=== PATIENT | male | born 1975 | race Caucasian/White ===

== ENCOUNTER 2018-11-19 15:26 | Emergency (ER) | payer SELFPAY ==
[~2018-11-19] VITALS: Ht 175.3 cm; Wt 79.8 kg
[2018-11-19 15:26] VITALS: BP 127/79
[2018-11-19] MEDS ORDERED: METH4TAB2 PO (15:56)
[2018-11-19] MEDS ORDERED: SULF1TAB24 PO (15:56)
--- NOTE | 2018-11-19 15:56 | PHYS DOC ---
Adult General Chief Complaint Chief Complaint: SKIN PROBLEM HPI HPI Patient is a 43-year-old male who presents with complaint of left hand and wrist pain and swelling that he noticed this morning. Patient states that he is been working with his hands, aching trenches and has scraped up hands and gotten q uite dirty. He noticed this morning that he had increase in swelling in the left hand and wrist with redness and pain. He is worried that he has an infection.[] Review of Systems Review of Systems Constitutional: Denies fever or chills [] Respiratory: Denies cough or shortness of breath [] Cardiovascular: No additional information not addressed in HPI [] Musculoskeletal: Positive left hand and wrist pain [] Integument: Abrasions are noted to left hand and wrist with surrounding swelling and erythema, consistent with cellulitis.[] Physical Exam Physical Exam Constitutional: Well developed, well nourished, no acute distress, non-toxic appearance. [] Cardiovascular:Heart rate regular rhythm, no murmur [] Lungs & Thorax: Bilateral breath sounds clear to auscultation [] Skin: There is erythema, swelling, warmth and tenderness on the dorsal aspect of the left hand and wrist, consistent with cellulitis. [] EKG EKG [] Radiology/Procedures Radiology/Procedures [] Course & Med Decision Making Course & Med Decision Making Pertinent Labs and Imaging studies reviewed. (See chart for details) [] Dragon Disclaimer Dragon Disclaimer This electronic medical record was generated, in whole or in part, using a voice recognition dictation system. Departure Departure: Impression: Primary Impression: Cellulitis Disposition: HOME, SELF-CARE Condition: STABLE Referrals: PCP,NO (PCP) Patient Instructions: Cellulitis Scripts Methylprednisolone (MEDROL) 4 Mg Tab.ds.pk 1 PKG PO UD for inflammation, #1 PKG Prov: GILMA SANCHEZ Jr. DO 11/19/18 Sulfamethoxazole/Trimethoprim (BACTRIM DS TABLET) 1 Each Tablet 1 TAB PO BID for infection, #20 TAB Prov: GILMA SANCHEZ Jr. DO 11/19/18 Problem Qualifiers Primary Impression: Cellulitis Site of cellulitis: extremity Site of cellulitis of extremity: upper extremity Laterality: left Qualified Codes: L03.114 - Cellulitis of left upper limb GILMA SANCHEZ Jr. DO Nov 19, 2018 15:56
[2018-11-19] MEDS ORDERED: DEXAMETHASONE SOD PHOS 10 MG/ML VIAL IM ONE (16:00)
[2018-11-19] MEDS ORDERED: ceFAZolin IM 1 GM VIAL IM ONE (16:00)
[2018-11-19] MEDS ORDERED: LIDOCAINE 1% Multi-Dose 20 ML VIAL. ONE (16:03)
[2018-11-19] MEDS ORDERED: DIPHTH,PERTUSS(ACELL),TET TOX 0.5 ML DISP.SYRIN. VAX IM ONE (16:15)
== END 2018-11-19 16:25 | disposition home or self-care (01) ==
LOC: ER 15:26
DX: L03.114 Cellulitis of left upper limb (principal)
CPT/HCPCS: 90471; 90715; 96372; 99284; J0690; J1100